=== PATIENT | female | born 1985 | race African-American/Black ===

== ENCOUNTER → 2024-08-09 | Outpatient (CLI) | payer OTHER ==
[2024-08-09 08:55] VITALS: BP 110/74; PULSE 91; RESP 16; TEMP 98.2
--- NOTE | 2024-08-09 09:53 | P.HPOB ---
History of Present Illness H&P Date: 08/09/24 Chief Complaint: Patient is here for her routine gynecologic exam. This is a 39-year-old G0 with an LMP of 07/07/2024. The patient is here to establish with this office. She has not been sexually active for about 1-1/2 years. She states her menstrual periods started to become shorter during a 9- month period when she was under increased stress. More recently the stress has been less and they have become more normal. They are typically lasting 5 to 6 days. During the stressful times, they were still regular, but lasting only 3 to 4 days. She is also complaining of occasional vaginal wetness with the clear discharge without itching or irritation. She also can notice a slight odor. Review of Systems The patient's weight has been stable over the last year. She denies respiratory, cardiac, or G.I. problems. 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 History of Any Multi-Drug Resistant Organisms: None Reported Past Surgical History: Orthopedic Surgery Additional Past Surgical History / Comment(s): R KNEE TORN MENISCUS SURGERY Past Anesthesia/Blood Transfusion Reactions: No Reported Reaction Past Psychological History: No Psychological Hx Reported Smoking Status: Never smoker Past Alcohol Use History: None Reported Past Drug Use History: None Reported Additional History: She is single and is currently not seeing anybody at this time. She broke up with her female partner in 2022. She is a realtor. - Past Family History Mother Family Medical History: Cancer Additional Family Medical History / Comment(s): Breast cancer. Father Family Medical History: Unable to Obtain Medications and Allergies Home Medications Medication Instructions Recorded Confirmed Type No Known Home Medications 08/09/24 08/09/24 History Allergies Allergy/AdvReac Type Severity Reaction Status Date / Time No Known Allergies Allergy Unverified 08/09/24 08:51 Exam Vital Signs Temp Pulse Resp BP Pulse Ox 08/09/24 08:52 98.2 F 91 16 110/74 100 Intake and Output 08/08/24 08/09/24 08/09/24 22:59 06:59 14:59 Other: Weight 95.708 kg Height 5 feet 8 inches, weight 211 pounds, BMI 32.1. This is a well-developed well-nourished black female who is alert and oriented times 3 in no acute distress. HEENT: Within normal limits. NECK: Supple without mass or thyromegaly. CHEST AND LUNGS: Clear to auscultation. HEART: Regular rate and rhythm. BREASTS: Are without mass or discharge. AXILLARY EXAM: Negative for adenopathy. BACK: Negative for CVA tenderness. ABDOMEN: Soft, nontender, without palpable masses. PELVIC EXAM: Normal external genitalia. There is a watery slightly bloody discharge without odor in the vagina. There is a round mass measuring approximately 1.5 cm in diameter protruding from the cervix making the cervical os not visible. The mass is pinkish with a heterogeneous appearance. There is no evidence of prolapse. The uterus is midposition, approximately 10 weeks size, irregular and firm and nontender. There are no palpable adnexal masses or tenderness. RECTAL EXAM: Rectovaginal exam is negative for mass or tenderness and is negative for occult blood. EXTREMITIES: Nontender. IMPRESSION: 1. 39-year-old female with a cervical mass mass protruding from the cervix measuring approximately 1.5 cm in diameter. Differential diagnosis will include a prolapsed uterine fibroid or some form of cervical or endometrial neoplasia. 2. Probable fibroid uterus. 3. Vaginal discharge which may or may not be related to the cervical mass. Differential diagnosis will also include bacterial vaginosis, less likely candidiasis or trichomonas. Cervical neoplasia causing discharge is also considered. PLAN: 1. Pap smear cotest was performed. 2. Self breast awareness was discussed with the patient. We have also discussed symptoms associated with inflammatory breast cancer. 3. Affirm vaginitis panel was obtained. 4. Screening mammogram was recommended because of her family history of breast cancer. The order slip was given to the patient for this. 5. GC and Chlamydia testing was declined by the patient. She states she did not feel it was necessary. 6. Pelvic ultrasound was recommended to further evaluate the uterine irregularity and the cervical mass. The order slip was given to the patient for this. 7. Regardless of what the pelvic ultrasound shows, I am recommending referral for removal of the cervical mass. The patient will be referred to Dr. Paredes for this. 8. The patient will keep a menstrual calendar. 9. Osteoporosis prevention was discussed. I have stressed the importance of adequate calcium, vitamin D and regular exercise. Recommended amounts of calcium and vitamin D were also discussed. 10. She was advised to return in one year for her annual well woman exam and as needed.
--- NOTE | 2024-08-12 10:14 | P.PN ---
Progress Note - Text Progress Note Date: 08/12/24 OUTPATIENT FOLLOW-UP NOTE TEST(S)/RESULTS: Affirm vaginitis panel done on 08/09/2024 was negative for Pepper, Gardnerella, and trichomonas. METHOD OF NOTIFICATION: The patient was notified by phone on 08/12/2023. PATIENT COMMENTS: DIAGNOSIS: Negative affirm vaginitis panel. DISCUSSION: A referral has been made for her to see Dr. Paredes regarding the mass protruding from the cervix. She states she is scheduled for a pelvic ultrasound on 09/01/2023. If the referral appointment is made before the ultrasound, that is okay and she may also choose to have the ultrasound done at Dr. Paredes's office in that situation. PLAN: As above. Pap smear is pending.
== END ==
LOC: WWCWWP 08:32
PROVIDERS: ATTEND Obstetrics & Gynecology
DX: N89.8 Other specified noninflammatory disorders of vagina (principal); D26.0 Other benign neoplasm of cervix uteri; Z80.3 Family history of malignant neoplasm of breast

== ENCOUNTER → 2024-09-01 | Outpatient (CLI) | payer OTHER ==
--- NOTE | 2024-09-01 09:40 | US ---
EXAMINATION TYPE: US pelvis complete transvag DATE OF EXAM: 09/01/2024 COMPARISON: US CLINICAL INDICATION: Female, 39 years old with history of R68.89 CERVICAL MASS; Pt states pelvic mass felt on Dr's examination TECHNIQUE: Transvaginal (TV) and Transabdominal (TA) . Transabdominal grayscale sonographic images of the pelvis were acquired. Transvaginal sonographic im ages were medically necessary to better assess the following anatomy: TV ordered by physician Doppler imaging: Not performed. FINDINGS: Date of LMP: 08/12/2024 EXAM MEASUREMENTS: Uterus: 8.4 x 3.9 x 4.2 cm Endometrial Stripe: 0.4 cm Right Ovary: 2.6 x 3.5 x 2.2 cm Left Ovary: 4.2 x 2.6 x 3.3 cm 1. Uterus: Anteverted Heterogeneous, with possible large solid mass extending right/ anteriorly fr om uterine body= 7.6 x 7.9 x 10.2 cm- visualized better on TA, possible 2nd solid lesion left uterine body= 3.9 x 3.1 x 3.4 cm- visualized better on TV 2. Endometrium: wnl 3. Right Ovary: wnl, follicles- only visualized TA 4. Left Ovary: Cystic lesion = 2.4 x 2.0 x 2.2 cm, only visualized TA 5. Bilateral Adnexa: wnl 6. Posterior cul-de-sac: Small amount of free fluid IMPRESSION: Heterogenous uterus with underlying fibroid changes noted. Further evaluation with contra st enhanced MRI could be performed for further evaluation of the uterus. [facility], , 09/01/2024 9:38 AM
--- NOTE | 2024-09-13 10:19 | MM ---
Reason for Exam: Screening (asymptomatic). Last mammogram was performed 2 year(s) and 3 month(s) ago. Patient History: Menarche at age 10. Patient has no children. Mother had breast cancer, age 50. Risk Values: Kristina 5 year model risk: 0.8%. NCI Lifetime model risk: 15.0%. Prior Study Comparison: 04/26/2021 Bilateral Screening Mammogram, [facility]. 05/23/2022 Bilateral Screening Mammogram, [facility]. Tissue Density: The breasts are heterogeneously dense, which may obscure small masses. Findings: Analyzed By CAD. There is no suspicious group of microcalcifications or new suspicious mass in either breast. Overall Assessment: Negative, BI-RAD 1 Management: Screening Mammogram of both breasts in 1 year. Some advise bilateral breast ultrasound surveillance in patients with background dense tissue. Patient should continue monthly self-breast exams. A clinical breast exam by your physician is recommended on an annual basis. This exam should not preclude additional follow-up of suspicious palpable abnormalities. Note on Krisitna scores and lifetime risk: 1. A Kristina score greater than 3% is considered moderate risk. If this is the case, consider specialist referral to assess eligibility for a risk reducing agent. 2. If overall lifetime risk for the development of breast cancer is 20% or higher, the patient may qualify for future screening with alternating mammogram and breast MRI. [facility], , 09/13/2024 10:16 AM. Electronically signed and approved by: Musa Rhodes M.D.
--- NOTE | 2024-09-13 15:13 | P.PN ---
Progress Note - Text Progress Note Date: 09/13/24 OUTPATIENT FOLLOW-UP NOTE TEST(S)/RESULTS: Ultrasound done on 09/01/2024 shows a heterogeneous uterus with fibroids changes. The largest fibroid measures 10.2 cm. Screening mammo date was negative. METHOD OF NOTIFICATION: The patient was notified by phone on 09/13/24. PATIENT COMMENTS: The patient states that her appointment with Dr. Paredes was changed from today to 09/19/2024. This was a referral for a mass protruding from the cervix. DIAGNOSIS: Fibroid uterus with largest fibroid measuring 10.2 cm. Also a mass protruding from the cervix measuring approximately 1.5 cm. Differential diagnosis will include a prolapsed uterine fibroid as well as prolapse endometrial polyp or cervical neoplasm. DISCUSSION: The patient is scheduled to see Dr. Paredes on 09/29/2024, per the patient. Pelvic ultrasound report will be sent to Dr. Paredes. This referral was for the mass protruding from the cervix and he can also evaluate her for possible options for uterine fibroids. PLAN: As above.
== END | disposition home or self-care (01) ==
LOC: RADMAMWWP 07:29
PROVIDERS: ATTEND Obstetrics & Gynecology
DX: Z12.31 Encounter for screening mammogram for malignant neoplasm of breast (principal); R92.333 Mammographic heterogeneous density, bilateral breasts; D25.9 Leiomyoma of uterus, unspecified; Z80.3 Family history of malignant neoplasm of breast
CPT/HCPCS: 76830; 76856; 77067